=== PATIENT | male | born 1985 | race Caucasian/White ===

== ENCOUNTER 2021-02-16 08:31 | Emergency (ER) | payer MEDICAID ==
[~2021-02-16] VITALS: Ht 182.9 cm; Wt 136.1 kg
[2021-02-16 08:34] VITALS: BP 151/98
--- NOTE | 2021-02-16 08:35 | NUR ---
[facility] VIA GUR[facility] TO BED 04.
--- NOTE | 2021-02-16 09:21 | NUR ---
PT TAKEN TO CT VIA [facility].
--- NOTE | 2021-02-16 09:34 | NUR ---
36 YEARS OLD MALE BIBA FROM HOME C/O NAUSEA VOMITING CONDITION STABLE, RETURNS FROM CT WILL CONTINUE TO MONITOR.
--- NOTE | 2021-02-16 09:35 | NUR ---
PT BROUGHT BACK FROM CT VIA [facility].
[2021-02-16 10:30] LABS: BASOPHILS # (AUTO) 0.1 K/uL (0.00-0.22); BASOPHILS % (AUTO) 0.6 % (0.0-2.0); EOSINOPHILS # (AUTO) 0.2 K/uL (0-0.4); EOSINOPHILS % (AUTO) 1.4 % (0.0-4.0); HEMOGLOBIN 14.9 g/dL (12.0-18.0); LYMPHOCYTES # (AUTO) 1.5 K/uL (2.0-11.5); LYMPHOCYTES % (AUTO) 12.9 % (20.5-51.1); MEAN CORPUSCULAR HEMOGLOBIN 30 pg (27-31); MEAN CORPUSCULAR HGB CONC 34 g/dL (33-37); MEAN CORPUSCULAR VOLUME 88.7 fL (80-94); MONOCYTES # (AUTO) 0.7 K/uL (0.8-1.0); MONOCYTES % (AUTO) 6.4 % (1.7-9.3); NEUTROPHILS % (AUTO) 78.7 % (42.2-75.2); PLATELET COUNT (AUTO) 231 K/uL (140-450); RED BLOOD CELL COUNT(AUTO) 4.96 MIL/uL (4.20-6.10); RED CELL DISTRIBUTION WIDTH 14.5 % (11.6-13.7); WHITE BLOOD COUNT (AUTO) 11.4 K/uL (4.8-10.8)
[2021-02-16 10:51] LABS: ALBUMIN 3.5 g/dL (3.4-5.0); CREATININE 0.5 mg/dL (0.6-1.3); TOTAL BILIRUBIN 0.2 mg/dL (0.0-1.0)
[2021-02-16 10:52] LABS: APPEARANCE,URINE CLEAR (CLEAR); BILIRUBIN,URINE NEGATIVE (NEGATIVE); BLOOD, URINE NEGATIVE (NEGATIVE); COLOR,URINE YELLOW (YELLOW); LEUKOCYTE ESTERASE ,URINE NEGATIVE (NEGATIVE); NITRITE, URINE NEGATIVE (NEGATIVE); UGLUCOSE NEGATIVE (NEGATIVE)
[2021-02-16 11:34] LABS: BARBITURATE, URINE NEGATIVE ng/ml (NEG <=200); BENZODIAZEPINE, URINE NEGATIVE ng/mL (NEG <=200); CANNABINOID, URINE POSITIVE ng/mL (NEG <=50); COCAINE, URINE NEGATIVE ng/mL (NEG <=300)
[2021-02-16 11:35] LABS: OPIATE, URINE NEGATIVE ng/mL (NEG <=2000); PHENCYCLIDINE SCREEN,URINE NEGATIVE ng/mL (NEG <=25)
--- NOTE | 2021-02-16 11:45 | NUR ---
PATIENT TOLERATED PO INTAKE WELL NO NAUSEA VOMITING, ATE BREAKFAST 100%.
[2021-02-16 12:02] VITALS: BP 130/70
--- NOTE | 2021-02-16 12:05 | NUR ---
PATIENT CONDITION STABLE D/C HOME WITH INSTRUCTIONS AFTER CARE REVIEWED UNDERSTOOD.
--- NOTE | 2021-02-16 12:06 | NUR ---
pt given homeless resources paper pt resufed to sign
== END 2021-02-16 12:05 | disposition home or self-care (01) ==
LOC: MED 08:31
DX: R11.2 Nausea with vomiting, unspecified (principal); I10 Essential (primary) hypertension; E78.00 Pure hypercholesterolemia, unspecified; F17.200 Nicotine dependence, unspecified, uncomplicated
CPT/HCPCS: 36415; 70450; 71045; 74018; 80053; 80305; 81003; 85025; 99284